=== PATIENT | male | born 1975 | race Two or more races ===

== ENCOUNTER 2019-07-12 01:25 | Emergency (ER) | payer OTHER ==
[~2019-07-12] VITALS: Ht 162.6 cm; Wt 79.4 kg
[2019-07-12 01:25] VITALS: BP 131/76
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
--- NOTE | 2019-07-12 01:57 | NUR ---
RADIOLOGY AT BEDSIDE FOR XRAY
[2019-07-12] MEDS ORDERED: TDAP [DIPH/PERTUSSIS/TET] 0.5 ML VIAL IM ONE ×2 (02:30→02:42)
--- NOTE | 2019-07-12 03:20 | NUR ---
ER MD AT BEDSIDE FOR SUTURES
[2019-07-12] MEDS ORDERED: LIDOCAINE 1% INJ 50 ML MDV IJ ONE (03:23)
--- NOTE | 2019-07-12 04:08 | NUR ---
AFTER CARE INSTRUCTIONS PROVIDED VERBALLY PER MD AND NURSE. PATIENT VERBALIZED UNDERSTANDING.
== END 2019-07-12 04:09 ==
LOC: ER 01:27
DX: S61.412A Laceration without foreign body of left hand, initial encounter (principal); M79.642 Pain in left hand; M79.641 Pain in right hand; F10.10 Alcohol abuse, uncomplicated; Y90.9 Presence of alcohol in blood, level not specified; V49.49XA Driver injured in collision with other motor vehicles in traffic accident, initial encounter; Y93.89 Activity, other specified; Y92.488 Other paved roadways as the place of occurrence of the external cause; Y99.8 Other external cause status
CPT/HCPCS: 12001; 73130 ×2; 90471; 90715; 99283; A4217 ×2; J3490